=== PATIENT | female | born 1935 | race Caucasian/White ===

== ENCOUNTER → 2017-05-07 16:56 | Outpatient (CLI) | payer MEDICARE, BC ==
[2015-05-05 17:01] VITALS: BMI 32.3
[~2017-05-07 16:56] MED LIST: ASPIRIN EC81 M1 PO; CRESTOR10 MG PO; HYDROCODONE-APA1 TAB PO; SYNTHROID112 MCG PO; TUMS500 MG PO; VITAMIN B-1000 MCG/M IM; VITAMIN D31000 UNIT PO; ZESTRIL20 MG PO
== END | disposition home or self-care (01) ==
LOC: D.MAMMO 05-02 08:30
DX: Z85.3 Personal history of malignant neoplasm of breast (principal)

== ENCOUNTER 2017-09-20 13:07 | Inpatient (IN) | payer MEDICARE, BC ==
[~2017-09-20] VITALS: Ht 165.1 cm; Wt 73.9 kg
[2017-09-20] MEDS ORDERED: ARICEPT5 MG PO (13:32)
[2017-09-20] MEDS ORDERED: ASPIRIN325 MG PO (13:36)
[2017-09-20] MEDS ORDERED: PRENATAL COMPLE1 TAB PO (13:37)
[2017-09-20] MEDS ORDERED: HYDROCODON-ACE1 EAC6 PO (13:37)
[2017-09-20 13:55] VITALS: BP 132/55; BMI 27.1
[2017-09-20 19:20] VITALS: BP 132/60
[2017-09-21 08:27] VITALS: BP 136/55
[2017-09-21 09:19] LABS: BASOPHILS 0.2 % (0-2); EOSINOPHILS 1.4 % (0-7); HEMATOCRIT 27.8 % (36.0-48.0); HEMOGLOBIN 9.3 g/dL (12-16); IMMATURE GRANULOCYTES 0.7 % (0-5); LYMPHOCYTES 22.7 % (15-50); MCH 32.5 pg (26.0-34.0); MCHC 33.5 g/dL (31.0-37.0); MCV 97.2 fL (80.0-100.0); MEAN PLATELET VOLUME 9.5 fL (7.4-10.4); MONOCYTES 7.7 % (2-11); NEUTROPHILS 67.3 % (40-80); PLATELET COUNT 212 10x3/uL (130-400); RBC 2.86 10x6/uL (4.00-5.40); RDW 13.5 % (11.5-14.5)
[2017-09-21 09:40] LABS: ANION GAP 12.2 mmol/L (8-16); CALCIUM 8.4 mg/dL (8.5-10.1); CARBON DIOXIDE 26.6 mmol/L (21.0-32.0); POTASSIUM - SERUM 3.8 mmol/L (3.5-5.1)
[2017-09-21 19:45] VITALS: BP 161/67
[2017-09-22 08:05] VITALS: BP 130/55
[2017-09-22 19:45] VITALS: BP 159/59
[2017-09-23 08:00] VITALS: BP 117/54
[2017-09-23 19:35] VITALS: BP 142/59
[2017-09-24 08:03] LABS: BASOPHILS 0.2 % (0-2); EOSINOPHILS 4.1 % (0-7); HEMATOCRIT 27.5 % (36.0-48.0); HEMOGLOBIN 9.3 g/dL (12-16); IMMATURE GRANULOCYTES 0.6 % (0-5); MCHC 33.8 g/dL (31.0-37.0); MCV 97.5 fL (80.0-100.0); MEAN PLATELET VOLUME 9.1 fL (7.4-10.4); MONOCYTES 10.6 % (2-11); NEUTROPHILS 59.5 % (40-80); RBC 2.82 10x6/uL (4.00-5.40); RDW 13.5 % (11.5-14.5); WBC 8.3 10x3/uL (4.8-10.8)
[2017-09-24 08:13] LABS: PLATELET COUNT 285 10x3/uL (130-400)
[2017-09-24 08:19] LABS: ANION GAP 13.3 mmol/L (8-16); CALCIUM 8.6 mg/dL (8.5-10.1); CARBON DIOXIDE 28.3 mmol/L (21.0-32.0); CREATININE - SERUM 0.8 mg/dL (0.6-1.3); POTASSIUM - SERUM 3.6 mmol/L (3.5-5.1)
[2017-09-24 08:37] VITALS: BP 119/53
[2017-09-24 15:02] VITALS: Ht 165.1 cm; Wt 73.9 kg
[2017-09-24 21:30] VITALS: BP 112/48
[2017-09-25 07:54] VITALS: BP 136/70
[2017-09-25 20:00] VITALS: BP 112/43
[2017-09-26 08:30] VITALS: BP 115/53
[2017-09-26 19:45] VITALS: BP 113/53
[2017-09-27 06:56] LABS: BASOPHILS 0.6 % (0-2); EOSINOPHILS 3.6 % (0-7); HEMATOCRIT 25.9 % (36.0-48.0); HEMOGLOBIN 8.6 g/dL (12-16); IMMATURE GRANULOCYTES 0.7 % (0-5); LYMPHOCYTES 23.8 % (15-50); MCH 32.7 pg (26.0-34.0); MCHC 33.2 g/dL (31.0-37.0); MCV 98.5 fL (80.0-100.0); MEAN PLATELET VOLUME 9.5 fL (7.4-10.4); MONOCYTES 9.5 % (2-11); NEUTROPHILS 61.8 % (40-80); PLATELET COUNT 362 10x3/uL (130-400); RBC 2.63 10x6/uL (4.00-5.40); RDW 14.1 % (11.5-14.5)
[2017-09-27 07:26] LABS: ANION GAP 13.3 mmol/L (8-16); CALCIUM 8.6 mg/dL (8.5-10.1); CARBON DIOXIDE 26.7 mmol/L (21.0-32.0); CREATININE - SERUM 0.9 mg/dL (0.6-1.3)
[2017-09-27 08:00] VITALS: BP 134/58
[2017-09-27 20:50] VITALS: BP 114/54
[2017-09-28 06:22] LABS: BASOPHILS 0.4 % (0-2); EOSINOPHILS 2.9 % (0-7); HEMATOCRIT 25.9 % (36.0-48.0); HEMOGLOBIN 8.6 g/dL (12-16); IMMATURE GRANULOCYTES 0.5 % (0-5); MCH 32.7 pg (26.0-34.0); MCHC 33.2 g/dL (31.0-37.0); MCV 98.5 fL (80.0-100.0); MEAN PLATELET VOLUME 8.8 fL (7.4-10.4); MONOCYTES 9.6 % (2-11); NEUTROPHILS 61.6 % (40-80); PLATELET COUNT 354 10x3/uL (130-400); RBC 2.63 10x6/uL (4.00-5.40); RDW 14.1 % (11.5-14.5); WBC 9.7 10x3/uL (4.8-10.8)
[2017-09-28 08:11] VITALS: BP 138/54
[2017-09-28 23:00] VITALS: BP 137/62
[2017-09-29 05:54] LABS: BASOPHILS 0.3 % (0-2); EOSINOPHILS 2.9 % (0-7); HEMATOCRIT 27.7 % (36.0-48.0); HEMOGLOBIN 9.3 g/dL (12-16); IMMATURE GRANULOCYTES 0.7 % (0-5); LYMPHOCYTES 22.4 % (15-50); MCH 32.9 pg (26.0-34.0); MCHC 33.6 g/dL (31.0-37.0); MCV 97.9 fL (80.0-100.0); MEAN PLATELET VOLUME 8.5 fL (7.4-10.4); MONOCYTES 8.1 % (2-11); NEUTROPHILS 65.6 % (40-80); PLATELET COUNT 355 10x3/uL (130-400); RBC 2.83 10x6/uL (4.00-5.40); WBC 9.9 10x3/uL (4.8-10.8)
[2017-09-29 08:16] VITALS: BP 128/56
[2017-09-29 19:53] VITALS: BP 139/61
[2017-09-30 08:00] VITALS: BP 117/54
[2017-09-30 23:08] VITALS: BP 112/46
[2017-10-01 08:00] VITALS: BP 109/51
[2017-10-01 09:36] VITALS: BP 120/59
[2017-10-01 20:00] VITALS: BP 116/51
[2017-10-02 08:12] VITALS: BP 109/52
[2017-10-02 08:31] VITALS: BP 126/49
[2017-10-02 12:48] LABS: BASOPHILS 0.2 % (0-2); EOSINOPHILS 1.6 % (0-7); HEMOGLOBIN 9.9 g/dL (12-16); IMMATURE GRANULOCYTES 0.4 % (0-5); LYMPHOCYTES 12.8 % (15-50); MCHC 31.9 g/dL (31.0-37.0); MCV 100.3 fL (80.0-100.0); MEAN PLATELET VOLUME 8.8 fL (7.4-10.4); MONOCYTES 7.6 % (2-11); NEUTROPHILS 77.4 % (40-80); PLATELET COUNT 383 10x3/uL (130-400); RBC 3.09 10x6/uL (4.00-5.40); RDW 14.1 % (11.5-14.5); WBC 13.1 10x3/uL (4.8-10.8)
[2017-10-02 19:30] VITALS: BP 117/45
[2017-10-03 08:00] VITALS: BP 129/57
[2017-10-03 21:56] VITALS: BP 150/56
[2017-10-04 08:00] VITALS: BP 129/61
== END 2017-10-04 14:34 | disposition home health service (06) | DRG 554 ==
LOC: D.REHAB 13:07
PROVIDERS: Emergency Medicine
DX: M17.11 Unilateral primary osteoarthritis, right knee (principal); D62 Acute posthemorrhagic anemia; Z96.651 Presence of right artificial knee joint; I10 Essential (primary) hypertension; E03.9 Hypothyroidism, unspecified; R53.1 Weakness

== ENCOUNTER 2019-03-02 09:00 | Outpatient (CLI) | payer MEDICARE, BC ==
[2017-09-24 15:02] VITALS: BMI 27.1
[~2019-03-02 09:00] MED LIST changes: +ARICEPT5 MG PO; +ASPIRIN325 MG PO; +HYDROCODON-ACE1 EAC6 PO; +PRENATAL COMPLE1 TAB PO
== END 2019-03-02 09:30 | disposition home or self-care (01) ==
LOC: D.MAMMO 09:00
PROVIDERS: ATTEND Family Medicine
DX: Z85.3 Personal history of malignant neoplasm of breast (principal)

== ENCOUNTER 2019-11-13 09:08 | Outpatient (CLI) | payer MEDICARE, BC ==
[~2019-11-13] VITALS: Ht 165.1 cm; Wt 78.2 kg
[~2019-11-13 09:08] MED LIST changes: +BAYER CHEWABLE81 MG PO
[2019-11-13 09:44] LABS: BASOPHILS 0.7 % (0-2); EOSINOPHILS 1.9 % (0-7); HEMATOCRIT 40.1 % (36.0-48.0); HEMOGLOBIN 13.1 g/dL (12-16); IMMATURE GRANULOCYTES 1.3 % (0-5); LYMPHOCYTES 21.9 % (15-50); MCH 31.1 pg (26.0-34.0); MCHC 32.7 g/dL (31.0-37.0); MCV 95.2 fL (80.0-100.0); MEAN PLATELET VOLUME 9.1 fL (7.4-10.4); MONOCYTES 6.8 % (2-11); NEUTROPHILS 67.4 % (40-80); PLATELET COUNT 291 10x3/uL (130-400); RBC 4.21 10x6/uL (4.00-5.40); RDW 12.6 % (11.5-14.5); WBC 10.4 10x3/uL (4.8-10.8)
[2019-11-13 09:54] LABS: APTT 31.4 SECONDS (22.8-39.4)
[2019-11-13 09:55] LABS: INR 1.09 (0.85-1.17)
[2019-11-13 10:05] LABS: ANION GAP 14.6 mmol/L (8-16); CALCIUM 9.3 mg/dL (8.5-10.1); CREATININE - SERUM 0.8 mg/dL (0.6-1.3); POTASSIUM - SERUM 4.6 mmol/L (3.5-5.1)
[2019-11-13 10:47] VITALS: Ht 165.1 cm; Wt 78.2 kg
--- NOTE | 2019-11-13 16:20 | NUR ---
1400-RADIOLOGY HERE TO PERFORM CXR. TOLERATED TRAY. DENIES PAIN. VSS. CL IN EASY REACH,SON AT BEDSIDE.
--- NOTE | 2019-11-13 16:21 | NUR ---
1450-IV REMOVED FROM LEFT ARM WITH CATH INTACT, DISPOSED INTO SHARPS. COVERED SITE WITH GUAZE,SECURED WITH MEDIPORE TAPE. VSS. DENIES PAIN. DRESSING TO LEFT SIDE IS CDI.
--- NOTE | 2019-11-13 16:23 | NUR ---
1503-REVIEWED DISCHARGE INSTRUCTIONS.
--- NOTE | 2019-11-13 16:25 | NUR ---
1510-PT DRESSED. ESCORTED OUT VIA W/C WITH SON AWAITING TO DRIVE HOME
== END 2019-11-13 15:10 | disposition home or self-care (01) ==
LOC: D.SP 09:08 → D.CT 11:00 → D.SP 15:10
PROVIDERS: Radiology Diagnostic Radiology; ATTEND Family Medicine
DX: J90 Pleural effusion, not elsewhere classified (principal)

== ENCOUNTER 2019-11-17 09:22 | Inpatient (IN) | payer MEDICARE, BC ==
[~2019-11-17] VITALS: Ht 172.7 cm; Wt 78.6 kg
--- NOTE | ~2019-11-17 | OP ---
PATIENT NAME: MARGOT PHILLIPS MEDICAL RECORD: [id number] :33 [facility] ADMISSION DATE:11/18/19 SURGEON: TISHA ORTIZ MD DATE OF OPERATION: 11/18/2019 SURGEON: Tisha Ortiz MD ANESTHESIA: General endotracheal, Dr. Da Silva. OPERATION PERFORMED: 1. Left video-assisted thoracoscopy with pleural biopsies. 2. Flexible fiberoptic bronchoscopy. PREOPERATIVE DIAGNOSIS: Recurrent left pleural effusion. POSTOPERATIVE DIAGNOSIS: Recurrent left pleural effusion. INDICATION FOR OPERATION: Frozen section, possible malignant cells. ESTIMATED BLOOD LOSS: Less than 10 cc. DESCRIPTION OF PROCEDURE: After informed consent and adequate preoperative medication evaluation, the patient brought to the operating room, placed on the table in supine position. After induction of general endotracheal anesthesia and application of appropriate monitoring devices, flexible fiberoptic bronchoscopy and placement of a double lumen tube, the patient was turned in a right lateral decubitus position, protecting the pressure points and neurological structures. The left chest was prepped and draped in a sterile field, utilizing Betadine scrub, alcohol, and Betadine solution. A Betadine-impregnated drape was also used. A small incision was made below the ninth interspace in the midclavicular line. Incision was made. Dissection carried down to the chest wall and the intercostal muscles were and a port was placed and secured. A camera was inserted. There was a large pleural effusion. The effusion was evacuated and cultures performed. The chest and lungs were examined. 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 A port was made in the anterior sixth interspace in the anterior axillary line and a port placed. The parietal pleura was then biopsied. A frozen section returned with probable malignant cells. Multiple biopsies were taken of the areas of the pleura that appeared to be involved with the metastatic disease. The lung also had small implants throughout and the filmy adhesions were lysed with blunt dissection, the fluid was removed. A talc pleurodesis was performed. A #32 chest tube was placed in the camera port site and secured. The instrument count and sponge count were correct times 2. The chest was examined again through the anterior port and the talc was distributed throughout the left hemithorax with instrument count and sponge counts correct times 2. The anterior port site was closed with 2-0 Vicryl and 5-0 subcuticular Vicryl. Chest tube was connected to suction. The patient underwent flexible fiberoptic bronchoscopy and the patient transferred to the CV ICU in satisfactory condition. TRANSINT:[id number] Voice Confirmation ID: [id number] DOCUMENT ID: [id number] OPERATIVE REPORT [id number] MARGOT PHILLIPS EDWARD MD CC: [id number] DICTATION DATE: 11/18/19 1449 PAPER REELER: 11/18/19 1652 ADM IN [place] [id number] [place] [address]
[~2019-11-17 09:22] MED LIST changes: -ARICEPT5 MG PO; +DONEPEZIL HCL10 MG PO
[2019-11-17] MEDS ORDERED: CELEXA20 MG PO (09:58)
[2019-11-17 11:16] LABS: HEMATOCRIT 40.5 % (36.0-48.0); HEMOGLOBIN 13.6 g/dL (12-16); MCH 31.7 pg (26.0-34.0); MCHC 33.6 g/dL (31.0-37.0); MCV 94.4 fL (80.0-100.0); MEAN PLATELET VOLUME 9.1 fL (7.4-10.4); RBC 4.29 10x6/uL (4.00-5.40); RDW 12.7 % (11.5-14.5); WBC 11.8 10x3/uL (4.8-10.8)
[2019-11-17 11:26] LABS: APTT 28.3 SECONDS (22.8-39.4); INR 1.02 (0.85-1.17); PROTIME 13.3 SECONDS (11.6-15.0)
[2019-11-17 11:33] LABS: ALBUMIN 2.8 g/dL (3.4-5.0); ANION GAP 12.1 mmol/L (8-16); BILIRUBIN - TOTAL 0.57 mg/dL (0.2-1.3); CALCIUM 9.3 mg/dL (8.5-10.1); CARBON DIOXIDE 28.3 mmol/L (21.0-32.0); CREATININE - SERUM 0.9 mg/dL (0.6-1.3); POTASSIUM - SERUM 4.4 mmol/L (3.5-5.1); PROTEIN - SERUM 7.5 g/dL (6.4-8.2)
[2019-11-17 14:21] LABS: BILIRUBIN NEGATIVE (NEGATIVE); GLUCOSE NEGATIVE (NEGATIVE); KETONE NEGATIVE (NEGATIVE); NITRITE NEGATIVE (NEGATIVE); UROBILINOGEN NORMAL (NORMAL)
[2019-11-17 14:24] LABS: BACTERIA FEW /hpf (NEGATIVE); EPITHELIAL CELLS 0-5 /hpf (0-5); RED CELLS - URINE NONE SEEN /hpf (0-5)
[2019-11-18] VITALS (40 sets, daily range): BP systolic 103–152; BP diastolic 47–75; BMI 26.2; BMI 26.8
[2019-11-18] MEDS ORDERED: BAYER CHEWABLE81 MG PO (07:38)
[2019-11-18] MEDS ORDERED: LISINOPRIL20 MG PO (07:38)
--- NOTE | 2019-11-18 15:01 | NUR ---
PT RECIEVD FROM OR ALERT AND ORIENTED, CONFUSED TO SITUATION, R RADIAL A LINE ZEROED, GOODW AVEFORM, WRIST PROTECTOR IN PLACE, L SUBCLAVIAN CVL DRESSING CDI SEE IV FLOWSHEET, L LAT CHEST INCISION AND CTX1 TO 20CM SUCTION NO AIR LEAK BLOODY DRAINAGE, DRESSING CDI, TEDS/SCDS IN PLACE, FREITAS DRAINING YELLOW URINE, FAMILY UPDATED BY DR ORTIZ, WILL CONTINUE TO MONITOR
[2019-11-19] VITALS (45 sets, daily range): BP systolic 108–148; BP diastolic 53–81; Ht 172.7 cm; Wt 78.6 kg
[2019-11-19 06:10] LABS: HEMATOCRIT 34.8 % (36.0-48.0); HEMOGLOBIN 11.4 g/dL (12-16); MCH 31.3 pg (26.0-34.0); MCHC 32.8 g/dL (31.0-37.0); MCV 95.6 fL (80.0-100.0); MEAN PLATELET VOLUME 9.2 fL (7.4-10.4); RBC 3.64 10x6/uL (4.00-5.40); RDW 12.8 % (11.5-14.5)
[2019-11-19 06:42] LABS: ALBUMIN 2.1 g/dL (3.4-5.0); ANION GAP 11.8 mmol/L (8-16); BILIRUBIN - TOTAL 0.66 mg/dL (0.2-1.3); CALCIUM 8.6 mg/dL (8.5-10.1); CARBON DIOXIDE 27.6 mmol/L (21.0-32.0); CREATININE - SERUM 1.1 mg/dL (0.6-1.3); POTASSIUM - SERUM 4.4 mmol/L (3.5-5.1); PROTEIN - SERUM 6.3 g/dL (6.4-8.2)
--- NOTE | 2019-11-19 08:19 | NUR ---
0700 PT RECIEVED ALERT, REORIENTED TO SITUATION NEEDED, L SUBCLAVIAN CVL DRESSING CDI, R RADIAL A LINE ZEROED, GOOD WAVEFORM, WRIST PROTECTOR IN PLACE, L CT TO20CM SUCTION NO AIR LEAK, DRESSING CDI, FREITAS DRAINING YELLOW URINE, EPIDURAL SITE CDI, PT DENIES PAIN, WILL CONTINUE TO MONITOR
--- NOTE | 2019-11-19 10:30 | NUR ---
JANNETTE DCD PER PROTOCOL TIP INTACT NO SIGNS OF BLEEDING
--- NOTE | 2019-11-19 17:26 | NUR ---
pt repositioned hourly throughout shift, chg bath with full linen change and ct dressing changed, pt uses IS independently, denies all needs, family updated during visiting hours
--- NOTE | 2019-11-19 19:00 | NUR ---
SHIFT ASSESSMENT COMPLETED. PT CARE ASSUMED. MONITORS ON AND WORKING, PT AWAKE AND ALERT. NO SIGNS/SYMPTOMS OF PAIN OR DISCOMFORT NOTED AT THIS TIME WILL CONTINUE TO OBSERVE.
--- NOTE | 2019-11-19 23:00 | NUR ---
PT TURNED AND REPOSITIONED FOR COMFORT. MONITORS ON AND WORKING, VITALS STABELE. SEE FLOW SHEET FOR FURTHER DETAILS. WILL CONTINUE TO OBSERVE.
[2019-11-20] VITALS (24 sets, daily range): BP systolic 97–140; BP diastolic 44–71
[2019-11-20 07:00] LABS: ANION GAP 10.9 mmol/L (8-16); BILIRUBIN - TOTAL 0.89 mg/dL (0.2-1.3); CALCIUM 8.1 mg/dL (8.5-10.1); CARBON DIOXIDE 27.1 mmol/L (21.0-32.0); CREATININE - SERUM 0.9 mg/dL (0.6-1.3); PROTEIN - SERUM 5.8 g/dL (6.4-8.2)
[2019-11-20 07:01] LABS: HEMOGLOBIN 10.8 g/dL (12-16); MCH 31.1 pg (26.0-34.0); MCHC 32.7 g/dL (31.0-37.0); MCV 95.1 fL (80.0-100.0); MEAN PLATELET VOLUME 9.2 fL (7.4-10.4); RBC 3.47 10x6/uL (4.00-5.40); RDW 12.9 % (11.5-14.5)
--- NOTE | 2019-11-20 10:24 | NUR ---
Nutrition Follow-up: POD 2 VATS. Fair appetite. Ate >50% of breakfast this AM. Denies N/V. Unsure of last BM. Likes vanilla Ensure. Diet: Regular Wt: 176# (11/19) Labs noted: Na 133, Ca 8.1, Alb 2.0 Meds noted: Protonix -+Ensure with meals. -Monitor wt. -RD following.
--- NOTE | 2019-11-20 10:30 | NUR ---
David PRATT DC'Owen BY DR. BARNEY. SITE DRESSED WITH VASELINE GAUZE AND 4X4S. SECURED WITH TEGADERM.
--- NOTE | 2019-11-20 11:41 | NUR ---
EPIDURAL DC'D BY DR. SENIOR.
[2019-11-20] MEDS ORDERED: FEMARA2.5 MG PO (11:46)
--- NOTE | 2019-11-20 19:00 | NUR ---
REPORT RECEIVED. RECEIVED PATIENT IN BED, RESTING WITH EYES CLOSED, EASILY ROUSED AND ALERT. VSS. SON AT BEDSIDE. ASSESSMENT COMPLETED PER FLOW SHEET WTIH NO ACUTE DISTRESS OBSERVED. CALL LIGHT IN REACH AND ABLE TO UTILIZE TO MAKE NEEDS KNOWN.
--- NOTE | 2019-11-20 21:00 | NUR ---
RESTING WITH EYES CLOSED, EASILY ROUSED AND ALERT. VSS. CALL LIGHT IN REACH
--- NOTE | 2019-11-20 23:00 | NUR ---
REASSESSMENT COMPLETED PER FLOW SHEET WITH NO ACUTE DISTRESS OBSERVED. VSS. CALL LIGHT IN REACH
[2019-11-21] VITALS (11 sets, daily range): BP systolic 90–118; BP diastolic 46–61
--- NOTE | 2019-11-21 01:00 | NUR ---
RESTING WITH EYES CLOSED, EASILY ROUSED AND ALERT. VSS
--- NOTE | 2019-11-21 03:00 | NUR ---
RESTING WITH EYES CLOSED, EASILY ROUSED AND ALERT. VSS. REASSESSMENT COMPLETED PER FLOW SHEET WITH NO ACUTE DISTRESS OBSERVED. CALL LIGHT IN REACH
--- NOTE | 2019-11-21 05:00 | NUR ---
RESTING WITH EYES CLOSED, EASILY ROUSED AND ALERT. AMBULATED TO BATHROOM WITH ASSIST. GAIT STEADY. VOIDED WITHOUT DIFF. CHG BATH GIVEN. AMBULATED BACK TO BEDSIDE CHAIR WITH MONITORS CONNECTED. VSS. CALL LIGHT IN REACH
[2019-11-21 05:49] LABS: HEMATOCRIT 32.5 % (36.0-48.0); HEMOGLOBIN 10.7 g/dL (12-16); MCH 31.1 pg (26.0-34.0); MCHC 32.9 g/dL (31.0-37.0); MCV 94.5 fL (80.0-100.0); RBC 3.44 10x6/uL (4.00-5.40); RDW 12.8 % (11.5-14.5); WBC 13.8 10x3/uL (4.8-10.8)
[2019-11-21 06:08] LABS: ANION GAP 9.6 mmol/L (8-16); BILIRUBIN - TOTAL 0.82 mg/dL (0.2-1.3); CALCIUM 8.1 mg/dL (8.5-10.1); CARBON DIOXIDE 29.3 mmol/L (21.0-32.0); POTASSIUM - SERUM 3.9 mmol/L (3.5-5.1)
--- NOTE | 2019-11-21 11:50 | NUR ---
1020: DR. BARNEY HERE. REVIEWED DISCHARGE INSTRUCTIONS WITH PATIENT AND SON. 1100: L [facility] DC'D. MANUAL PRESSURE HELD X 3 MIN. SITE DRESSED WTIH 2X2 AND TEGADERM. 1115: ALL DISCHARGE INSTRUCTIONS REVIEWED AGAIN WITH PATIENT, DAUGHTER, AND SON. 1125: ASSISTED WITH DRESSING. 1148: DISCHARGED HOME WITH SON AND DAUGHTER. ESCORTED TO VEHICLE BY WHEELCHAIR.
--- NOTE | 2019-11-21 18:26 | MORECARE ---
CASE MANAGEMENT DISCHARGE SUMMARY PATIENT: MARGOT PHILLIPS UNIT: [id number] ADM DATE: 11/18/19 AGE: 84 : 34 SEX: F ROOM/BED: [facility] AUTHOR: FATOUMATA TRINIDAD PHYSICIAN: REFERRING PHYSICIAN: TISHA ORTIZ MD DATE OF SERVICE: 11/21/19 Discharge Plan Patient Name: MARGOT PHILLIPS Facility: [facility]:[place] : 1935 Planned Disposition: Anticipated Discharge Date: Discharge Date: 11/21/2019 Expected LOS: Initial Reviewer: [email or web address] Initial Review Date: 11/21/2019 Generated: 11/21/19 7:25 pm Patient Name: MARGOT PHILLIPS Page [id number] at 1826 All edits/amendments must be made on the electronic document DICTATION DATE: 11/21/191824 MARKETING CO OP: NABIL 11/21/191824 RPT#: [id number] DC DATE:11/21/19 STATUS: DIS IN [facility] [address] [place] [address] END OF REPORT
--- NOTE | 2019-11-21 18:33 | MORECARE ---
CASE MANAGEMENT DISCHARGE SUMMARY PATIENT: MARGOT PHILLIPS UNIT: [id number] ADM DATE: 11/18/19 AGE: 84 : 34 SEX: F ROOM/BED: [facility] AUTHOR: VIVI,DOC PHYSICIAN: REFERRING PHYSICIAN: TISHA ORTIZ MD DATE OF SERVICE: 11/21/19 Discharge Plan Patient Name: MARGOT PHILLIPS Facility: [facility]:[place] : 1935 Planned Disposition: Anticipated Discharge Date: Discharge Date: 11/21/2019 Expected LOS: Initial Reviewer: [email or web address] Initial Review Date: 11/21/2019 Generated: 11/21/19 7:32 pm Comments DCP- Discharge Planning Updated by [email or web address]: Lindsey Reynoso on 11/21/19 5:[address] Patient Name: MARGOT PHILLIPS Admission Status: Urgent Accout number: [id number] Admission Date: 11-18-2019 : 1935 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 CM educated patient on the CM role and verbal consent given by patient to complete assessment. CM verified patient's address, phone number, and emergency contact phone numbers. Patient lives at home with her family. At discharge patient plans to return home and feels that this is a safe discharge. CM discussed availability of home health, rehab services, and medical equipment. D/C IMM signed . CM will continue to follow and will assist as needed with dc plans/needs. Manager Chemistry: Lindsey Reynoso DCPIA - Discharge Planning Initial Assessment Updated by [email or web address]: Lindsey Reynoso on 11/21/19 6:28 pm * Is the patient Alert and Oriented? Yes * How many steps to enter\exit or inside your home? * PCP ALAN * Pharmacy [facility] * Preadmission Environment Home with Family * ADLs Independent * List name and contact numbers for known caregivers / representatives who currently or will assist patient after discharge: PADMINI [facility]PHREYS [facility] - [phone] * Verbal permission to speak to the caregivers and representatives has been obtained from the patient. Yes * Community resources currently utilized None * Additional services required to return to the preadmission environment? No * Can the patient safely return to the preadmission environment? Yes * Has this patient been hospitalized within the prior 30 days at any hospital? No Coverage Notice Reviewer: [email or web address] Jemal Reynoso Notice Issued Date-Time: 11/21/2019 9:30 Notice Type: IM Discharge Notice Notice Delivered To: Patient Relationship to Patient: Self Can Washer Name: Delivery Method: HAND - Hand Delivered Shayy Days: Prior Verbal Notification: Recipient Understood Notice: Yes Recipient Signature: Yes Med Rec Note Co-signed by Attending: Coverage Notice Comment: Last DP export: 11/21/19 5:26 p Patient Name: MARGOT PHILLIPS Page [id number] at 1833 All edits/amendments must be made on the electronic document DICTATION DATE: 11/21/191831 CHECKER/STOCKER: NABIL 11/21/191831 RPT#: [id number] DC DATE:11/21/19 STATUS: DIS IN [facility] [address] [place] [address] END OF REPORT
--- NOTE | 2019-11-23 09:26 | MORECARE ---
CASE MANAGEMENT DISCHARGE SUMMARY PATIENT: MARGOT PHILLIPS UNIT: [id number] ADM DATE: 11/18/19 AGE: 84 : 34 SEX: F ROOM/BED: [facility] AUTHOR: VIVI,DOC PHYSICIAN: REFERRING PHYSICIAN: TISHA ORTIZ MD DATE OF SERVICE: 11/23/19 Discharge Plan Patient Name: MARGOT PHILLIPS Facility: [facility]:[place] : 1935 Planned Disposition: Anticipated Discharge Date: Discharge Date: 11/21/2019 Expected LOS: Initial Reviewer: [email or web address] Initial Review Date: 11/21/2019 Generated: 11/23/19 10:25 am Comments DCP- Discharge Planning Updated by [email or web address]: Lindsey Reynoso on 11/21/19 5:[address] Patient Name: MARGOT PHILLIPS Admission Status: Urgent Accout number: [id number] Admission Date: 11-18-2019 : 1935 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 CM educated patient on the CM role and verbal consent given by patient to complete assessment. CM verified patient's address, phone number, and emergency contact phone numbers. Patient lives at home with her family. At discharge patient plans to return home and feels that this is a safe discharge. CM discussed availability of home health, rehab services, and medical equipment. D/C IMM signed . CM will continue to follow and will assist as needed with dc plans/needs. Security Ambassador: Lindsey Reynoso DCPIA - Discharge Planning Initial Assessment Updated by [email or web address]: Lindsey Reynoso on 11/21/19 6:28 pm * Is the patient Alert and Oriented? Yes * How many steps to enter\exit or inside your home? * PCP ALAN * Pharmacy [facility] * Preadmission Environment Home with Family * ADLs Independent * List name and contact numbers for known caregivers / representatives who currently or will assist patient after discharge: PADMINI KRAMERPHREYS [facility] - [phone] * Verbal permission to speak to the caregivers and representatives has been obtained from the patient. Yes * Community resources currently utilized None * Additional services required to return to the preadmission environment? No * Can the patient safely return to the preadmission environment? Yes * Has this patient been hospitalized within the prior 30 days at any hospital? No Coverage Notice Reviewer: [id number] Jemal Reynoso Notice Issued Date-Time: 11/21/2019 9:30 Notice Type: IM Discharge Notice Notice Delivered To: Patient Relationship to Patient: Self Direct Service Professional Name: Delivery Method: HAND - Hand Delivered Shayy Days: Prior Verbal Notification: Recipient Understood Notice: Yes Recipient Signature: Yes Med Rec Note Co-signed by Attending: Coverage Notice Comment: Last DP export: 11/21/19 5:33 p Patient Name: MARGOT PHILLIPS Page [phone] at 0926 All edits/amendments must be made on the electronic document DICTATION DATE: 11/23/19924 BLEACHER SULFITE PULP: NABIL 11/23/19924 RPT#: [id number] DC DATE:11/21/19 STATUS: DIS IN [facility] [address] [place] [address] END OF REPORT
== END 2019-11-21 11:48 | disposition home or self-care (01) | DRG 167 ==
LOC: D.SDCHOLD 09:35 → D.CVICU 11-18 06:38 → D.SDCHOLD 11-18 06:38 → D.CVICU 11-18 12:03
PROVIDERS: ADMIT Internal Medicine Cardiovascular Disease; ATTEND Internal Medicine Cardiovascular Disease
PROC: 0BBP4ZX Excision of Left Pleura, Percutaneous Endoscopic Approach, Diagnostic (ICD-10-PCS; principal; 2019-11-18 11:15)
PROC: 0BJ08ZZ Inspection of Tracheobronchial Tree, Via Natural or Artificial Opening Endoscopic (ICD-10-PCS; 2019-11-18 11:15)
DX: J91.0 Malignant pleural effusion (principal); E44.0 Moderate protein-calorie malnutrition; E87.1 Hypo-osmolality and hyponatremia; D62 Acute posthemorrhagic anemia; C50.919 Malignant neoplasm of unspecified site of unspecified female breast; J94.2 Hemothorax; I10 Essential (primary) hypertension; E03.9 Hypothyroidism, unspecified; M19.90 Unspecified osteoarthritis, unspecified site; E78.00 Pure hypercholesterolemia, unspecified; E78.5 Hyperlipidemia, unspecified; F03.90 Unspecified dementia, unspecified severity, without behavioral disturbance, psychotic disturbance, mood disturbance, and anxiety